=== PATIENT | female | born 1955 | race Caucasian/White ===

== ENCOUNTER 2022-12-20 20:24 | Emergency (ER) | payer SELFPAY ==
[~2022-12-20] VITALS: Ht 162.6 cm; Wt 77.0 kg
[2022-12-20 20:32] VITALS: O2SAT 98
[2022-12-20] MEDS ORDERED: MORPHINE SULFATE 4 MG/ML CPJ (NOT FOR IM USE) IV ONE (22:45)
[2022-12-20] MEDS ORDERED: HYDR-4001 MT (22:56)
[2022-12-20 23:00] VITALS: TEMP 98.6
[2022-12-21 00:32] VITALS: BP 133/67; PULSE 63; RESP 18
== END 2022-12-21 00:38 | disposition home or self-care (01) ==
LOC: ER 20:24
DX: S82.201A Unspecified fracture of shaft of right tibia, initial encounter for closed fracture (principal); E11.9 Type 2 diabetes mellitus without complications; W18.39XA Other fall on same level, initial encounter; Y93.89 Activity, other specified; Y92.89 Other specified places as the place of occurrence of the external cause; Y99.8 Other external cause status
CPT/HCPCS: 99285; 96374; 73610; J2270